=== PATIENT | female | born 1960 | race Caucasian/White ===

== ENCOUNTER 2017-05-14 17:52 | Emergency (ER) | payer OTHER ==
[~2017-05-14] VITALS: Ht 160 cm; Wt 74.8 kg
[~2017-05-14 17:52] MED LIST: ASPIRIN325 PO; ATIVAN2 MG PO; DOXEPIN 50MG CA50 M1 PO; DOXEPIN HCL100 MG PO; HYDROCODONE-AP1 EAC6 PO; IBUPROFEN 400400 M2 PO; IBUPROFEN 800800 M1 PO; LORAZEPAM 2MG TA2 M1 PO; NORFLEX100 MG PO; PERCOCET 5-3251 EACH PO; PREDNISONE 20 M20 MG PO; ZOLOFT100 MG PO
[2017-05-14 19:42] LABS: ABSOLUTE NEUTROPHILS 3.6 thou/uL (1.4-8.2); EOSINOPHILS 1.4 % (0.0-3.0); HEMATOCRIT 37.1 % (37.0-47.0); HEMOGLOBIN 12.4 gm/dL (12.0-15.0); LYMPHOCYTES 28.1 % (24.0-44.0); MANUAL DIFF NO; MCH 30.9 pg (26.0-34.0); MCHC 33.4 g/dL (28.0-37.0); MCV 92.3 fL (80.0-100.0); MONOCYTES 6.5 % (1.0-8.0); PLATELET COUNT 166 thou/uL (150-400); RBC 4.02 mil/uL (4.20-5.00); RDW 14.8 % (10.5-14.5); WBC 5.7 thou/uL (4.0-11.0)
[2017-05-14 19:55] LABS: AMP/METHAMP Negative (Negative); BARBITURATES Negative (Negative); BENZODIAZEPINES Negative (Negative); COCAINE Negative (Negative); METHADONE Negative (Negative); OPIATES Negative (Negative); PCP Negative (Negative); THC Negative (Negative)
[2017-05-14 19:57] LABS: ANION GAP 8 mmol/L (7-16); BUN 16 mg/dL (7-18); CHLORIDE 108 mmol/L (98-107); CO2 26 mmol/L (21-32); CREATININE 0.8 mg/dL (0.6-1.0); GLUCOSE 91 mg/dL (74-106); POTASSIUM 3.8 mmol/L (3.5-5.1); SODIUM 142 mmol/L (136-145)
[2017-05-14 20:03] LABS: ALKALINE PHOSPHATASE 98 U/L (46-116); DIRECT BILIRUBIN < 0.1 mg/dL (<0.1-0.3); SALICYLATE 20.5 mg/dL (2.8-20.0); SGOT 17 U/L (15-37); SGPT 7 U/L (30-65); TOTAL BILIRUBIN 0.2 mg/dL (<0.1-1.0); TOTAL PROTEIN 7.2 g/dL (6.4-8.2)
[2017-05-14 20:05] LABS: ACETAMINOPHEN < 2 ug/mL (10-30)
== END 2017-05-15 00:13 | disposition home or self-care (01) ==
LOC: ER 17:52
PROVIDERS: Emergency Medicine
DX: F32.9 Major depressive disorder, single episode, unspecified (principal); T50.901A Poisoning by unspecified drugs, medicaments and biological substances, accidental (unintentional), initial encounter; F17.210 Nicotine dependence, cigarettes, uncomplicated; Z90.89 Acquired absence of other organs; Y92.89 Other specified places as the place of occurrence of the external cause

== ENCOUNTER 2017-10-13 02:40 | Emergency (ER) | payer OTHER ==
[~2017-10-13] VITALS: Ht 160 cm; Wt 72.6 kg
[2017-10-13] MEDS ORDERED: DOXEPIN 75 MG C75 M1 PO (02:56)
[2017-10-13] MEDS ORDERED: DECONGEST NASAL (02:57)
[2017-10-13] MEDS ORDERED: PROTONIX40 M1 PO (02:57)
[2017-10-13] MEDS ORDERED: ATIVAN2 MG PO (03:48)
[2017-10-13 04:11] VITALS: BP 120/70
== END 2017-10-13 04:12 | disposition home or self-care (01) ==
LOC: ER 02:40
DX: F41.9 Anxiety disorder, unspecified (principal); F32.9 Major depressive disorder, single episode, unspecified; F17.210 Nicotine dependence, cigarettes, uncomplicated; Z59.0 Homelessness

== ENCOUNTER 2019-07-31 15:34 | Emergency (ER) | payer OTHER ==
[~2019-07-31] VITALS: Ht 162.6 cm; Wt 80.3 kg
[~2019-07-31 15:34] MED LIST changes: +DECONGEST NASAL; +DOXEPIN 75 MG C75 M1 PO; +PROTONIX40 M1 PO
[2019-07-31] MEDS ORDERED: NEXIUM 40 MG CA40 M1 PO (18:17)
[2019-07-31 18:32] LABS: ABSOLUTE NEUTROPHILS 4.3 thou/uL (1.4-8.2); BASOPHILS 0.2 % (0.0-2.0); EOSINOPHILS 0.1 % (0.0-3.0); HEMATOCRIT 37.6 % (37.0-47.0); HEMOGLOBIN 12.5 gm/dL (12.0-15.0); LYMPHOCYTES 9.4 % (24.0-44.0); MCH 29.4 pg (26.0-34.0); MCHC 33.3 g/dL (28.0-37.0); MCV 88.3 fL (80.0-100.0); MONOCYTES 7.6 % (1.0-8.0); PLATELET COUNT 151 thou/uL (150-400); POLYS 82.7 % (36.0-66.0); RBC 4.26 mil/uL (4.20-5.00); RDW 14.7 % (10.5-14.5); WBC 5.2 thou/uL (4.0-11.0)
[2019-07-31 18:42] LABS: CALCIUM 9.2 mg/dL (8.5-10.1); POTASSIUM 3.4 mmol/L (3.5-5.1)
[2019-07-31 18:50] LABS: ALBUMIN 3.9 g/dL (3.4-5.0); TOTAL BILIRUBIN 0.6 mg/dL (<0.1-1.0); TOTAL PROTEIN 7.9 g/dL (6.4-8.2)
[2019-07-31] MEDS ORDERED: ZOFRAN ODT4 MG PO (19:22)
[2019-07-31] MEDS ORDERED: IMODIUM A-D2 MG PO (19:23)
[2019-07-31 19:30] VITALS: BP 143/81
[2019-07-31] MEDS ORDERED: PHENERGAN 25 MG25 M1 PO (19:31)
== END 2019-07-31 19:30 | disposition home or self-care (01) ==
LOC: ER 15:34
PROVIDERS: Emergency Medicine
DX: R11.2 Nausea with vomiting, unspecified (principal); R19.7 Diarrhea, unspecified; F32.9 Major depressive disorder, single episode, unspecified; Z90.89 Acquired absence of other organs; F17.210 Nicotine dependence, cigarettes, uncomplicated